=== PATIENT | female | born 1950 | race Two or more races ===

== ENCOUNTER 2018-11-29 22:31 | Emergency (ER) | payer BC ==
[~2018-11-29] VITALS: Ht 157.5 cm; Wt 68.0 kg
--- NOTE | 2018-11-29 23:00 | NUR ---
ED Nurse Note: pt came from out of town, pt states she doesnt have her needle from insulin pen. requesting for one or insulin injection by hospital. pt self ambulatory accompanied with daughter. pt stable aox4
[2018-11-29 23:02] VITALS: BP 132/77
--- NOTE | 2018-11-29 23:25 | Emergency Room Report ---
History of Present Illness General Chief Complaint: Medication Refill Source: Patient Present Illness HPI This is a 67-year-old [place] female with history of diabetes. She presents with chief complaint of needing her insulin shot. Is visiting [place] and forgot her needle to her insulin pen. She did not take it this morning. She denies any symptoms. No nausea no vomiting. No fever chills but no other complaint. She is scheduled to take 15 units of her 75/25 insulin after dinner. Allergies: Coded Allergies: No Known Allergies (Unverified , 11/29/18) Patient History Past Medical History: see triage record, old chart reviewed, DM Past Surgical History: none Pertinent Family History: none Social History: Denies: smoking Now: No Immunizations: other Reviewed Nursing Documentation: PMH: Agreed; PSxH: Agreed Nursing Documentation-PMH Hx Diabetes: Yes Review of Systems Eye: Denies: eye pain, blurred vision ENT: Denies: ear pain, nose congestion, throat swelling Respiratory: Denies: cough, shortness of breath Cardiovascular: Denies: chest pain, palpitations Gastrointestinal: Denies: abdominal pain, diarrhea, nausea, vomiting Musculoskeletal: Denies: back pain, joint pain Skin: Denies: rash Neurological: Denies: headache, numbness Endocrine: Denies: increased thirst, increased urine Hematologic/Lymphatic: Denies: easy bruising All Other Systems: negative except mentioned in HPI Physical Exam Vital Signs Date Time Temp Pulse Resp B/P (MAP) Pulse Ox O2 Delivery O2 Flow Rate FiO2 11/29/18 22:52 98.1 82 16 132/77 (95) 97 Room Air Vitals normal Sp02 EP Interpretation: reviewed, normal General Appearance: well appearing, no apparent distress, alert Head: normocephalic, atraumatic Eyes: bilateral eye PERRL, bilateral eye EOMI ENT: hearing grossly normal, normal pharynx Neck: full range of motion, supple, no meningismus Respiratory: chest non-tender, lungs clear, normal breath sounds Cardiovascular #1: regular rate, rhythm, no murmur Gastrointestinal: normal bowel sounds, non tender, no mass, no organomegaly, no bruit, non-distended Musculoskeletal: back normal, gait/station normal, normal range of motion Psychiatric: mood/affect normal Skin: warm/dry Medical Decision Making Diagnostic Impression: Primary Impression: Hyperglycemia due to type 1 diabetes mellitus Additional Impression: Encounter for medication refill ER Course Is here for her insulin shots. He just does not have her needle to the insulin pen. I put a new needle on her insulin pain and she gave herself the 75/25 NPH. Will discharge home. Last Vital Signs Date Time Temp Pulse Resp B/P (MAP) Pulse Ox O2 Delivery O2 Flow Rate FiO2 11/29/18 23:02 98.1 82 16 132/77 97 Room Air Status: improved Disposition: HOME, SELF-CARE Condition: Stable Patient Instructions: Medicine Refill at the Emergency Department Additional Instructions: Follow up with your doctor in 7 days. Return if worse. Alex Garrido MD Nov 29, 2018 23:25
[2018-11-29 23:27] VITALS: BP 127/76
--- NOTE | 2018-11-29 23:27 | NUR ---
ER DISCHARGE NOTE: Patient is cleared to be discharged per ERMD, pt is aox4, on room air, with stable vital signs. pt was given dc. pt was able to verbalize understanding, pt id band removed. pt is able to ambulate with steady gait. pt took all belongings.
== END 2018-11-29 23:27 | disposition home or self-care (01) ==
LOC: EDBD 22:31 → EMR 23:20
DX: E10.65 Type 1 diabetes mellitus with hyperglycemia (principal); Z76.0 Encounter for issue of repeat prescription
CPT/HCPCS: 99281